=== PATIENT | female | born 1975 | race Caucasian/White ===

== ENCOUNTER 2016-07-20 19:54 | Emergency (ER) | payer MEDICARE, MEDICAID ==
[~2016-07-20] VITALS: Ht 165.1 cm; Wt 72.7 kg
[2016-07-20 20:32] LABS: BILIRUBIN,URINE Negative (Negative); CLARITY,URINE Clear; COLOR,URINE Yellow; GLUCOSE, URINE (UA) Negative (Negative); LEUKOCYTE ESTERASE ,URINE Negative (Negative); UROBILINOGEN,URINE 0.2 mg/dL (0.2-1.0)
[2016-07-20 20:38] LABS: RBC,URINE TNTC /HPF; URINE CENTRIFUGED VOLUME 12 mL
[2016-07-20] MEDS ORDERED: SODIUM CHLORIDE FLUSH 10 ML SYR IV PRN (20:50)
[2016-07-20] MEDS ORDERED: SODIUM CHLORIDE FLUSH 3 ML SYR IV PRN (20:50)
[2016-07-20] MEDS ORDERED: HYDROmorphone 1 MG/ML (DILAUDID) SYRINGE IV ONE ×2 (20:50→23:05)
[2016-07-20] MEDS ORDERED: ONDANSETRON 2 MG/ML (Z0FRAN) 2 ML VIAL IV ONE (20:50)
[2016-07-20 21:19] LABS: ALBUMIN 3.9 g/dL (3.4-5.0); ANION GAP 12.7 MEQ/L (3-15); CALCULATED IONIZED CALCIUM 3.9 mg/dL (3.8-4.6); TOTAL PROTEIN 6.8 g/dL (6.4-8.5)
--- NOTE | 2016-07-20 22:30 | NUR ---
Pt c/o pain to right side. Dr. Freitas notified. Awaiting orders.
[2016-07-21] MEDS ORDERED: ED- oxyCODONE/ACETAMINOPHEN 5MG-325MG (PERCOCET) 8 TABLETS/BTL PO ONE (00:10)
[2016-07-21 00:29] VITALS: BP 120/78
== END 2016-07-21 00:32 | disposition home or self-care (01) ==
LOC: ED 19:56
DX: S20.211A Contusion of right front wall of thorax, initial encounter (principal); W10.9XXA Fall (on) (from) unspecified stairs and steps, initial encounter; F17.210 Nicotine dependence, cigarettes, uncomplicated; S30.1XXA Contusion of abdominal wall, initial encounter; R31.9 Hematuria, unspecified
CPT/HCPCS: 36415; 71260; 74177; 80053; 81003; 81015; 96374; 96375; 96376; 99283; A9270; J1170; J2405; Q9967

== ENCOUNTER 2016-10-25 18:30 | Emergency (ER) | payer MEDICARE, MEDICAID ==
[~2016-10-25] VITALS: Ht 165.1 cm; Wt 73.4 kg
[~2016-10-25 18:30] MED LIST: ACHYD1T PO; ALPR.5T PO; ATN25T PO; CLIN-79 PO; CYCL10TA45 PO; GBPN600T PO; IBP800T PO; OXYC1TAB87 PO; PRAZ2CAP2 PO; PRED20TA PO; QUET300T3 PO; TRAZ100T92 PO; VILA20TA PO
[2016-10-25] MEDS ORDERED: ONDANSETRON 4 MG (ZOFRAN) ORAL DISSOLVE TAB PO ONE (19:05)
[2016-10-25] MEDS ORDERED: HYDROmorphone 2 MG/ML (DILAUDID) 1 ML SYRINGE IM ONE (19:05)
--- NOTE | 2016-10-25 20:20 | NUR ---
DR Esequiel CORNELIUS PAGED TO CALL DR JACOB JOAQUIN PT.
--- NOTE | 2016-10-25 20:23 | NUR ---
SOPHY CORNELIUS CALLED DR JAMES BACK AND THEY ARE CONSULTING
--- NOTE | 2016-10-25 20:31 | Diagnostic Imaging Report ---
INDICATION: Weakness, foot drop. TECHNIQUE: AP, Lateral and Spot imaging of the lumbar spine CORRELATION STUDY: 07/18/2016 FINDINGS: Kyphoplasty changes noted at T11 and T12. Lumbar vertebral body heights maintained. Alignment anatomic. Minimal endplate lipping at L1 and L4. Moderate disc space narrowing at L5-S1 level. Mild narrowing at L3-L4 level. No suggestion for acute bony abnormality. IMPRESSION: Negative for acute bony abnormality. Mild lower lumbar spine degenerative changes. Dictated by: Dictated on workstation # [id number]
[2016-10-25 20:33] VITALS: BP 133/78
== END 2016-10-25 20:42 | disposition home or self-care (01) ==
LOC: ED 18:31
DX: M54.31 Sciatica, right side (principal); F17.210 Nicotine dependence, cigarettes, uncomplicated
CPT/HCPCS: 72100; 96372; 99282; A9270; J1170